=== PATIENT | female | born 1955 | race Caucasian/White ===

== ENCOUNTER → 2018-09-01 | Outpatient (CLI) | payer OTHER ==
[~2018-09-01] MED LIST: E-Z-GAS II EFFERVESCENT PACKET (SODIUM BICARB./CITRIC ACID/SIMETHICONE) As Ordered ONE; E-Z-HD 98% w/w 340GM SUSP BTL As Ordered ONE; E-Z-PAQUE 96% w/w SUSP 176GM BTL As Ordered ONE
--- NOTE | 2018-09-16 10:41 | REP ---
Examination Requested: Esophagram Barium Swallow Reason For Exam/Comment: Dysphasia Esophagram: The procedure was performed LISETTE Rios, under the direct supervision of Dr. Elliott. The images were reviewed with Dr. Elliott. A single PA chest x-ray is submitted as a event organizer film. The superior mediastinal structures are midline. The heart size is within normal limits. The lungs are clear. Liquid barium and gas producing granules were given in the erect position as well as liquid barium in the prone oblique position, in order to perform a double contrast esophagram examination. Oral and pharyngeal stages of the examination were unremarkable. Esophageal transport is efficient and there is no esophagitis, stricture, or mucosal ring noted. The patient is status post Kalen fundoplication. There is no hiatal hernia noted. Gastroesophageal reflux was not visualized throughout the course of the exam. Impression: 1. Unremarkable esophagram. 0.4 minutes of fluoroscopy time was utilized for this procedure. Some fluoroscopic images are performed with last image hold technology. These images require no additional radiation. Reviewed by LISETTE Steinberg 09/01/2018 03:35 P Electronically Signed by Sami Elliott MD 09/16/2018 10:32 A
== END ==
LOC: M RAD 09:19
PROVIDERS: ATTEND Internal Medicine Gastroenterology
DX: R13.10 Dysphagia, unspecified (principal); K21.9 Gastro-esophageal reflux disease without esophagitis; Z98.0 Intestinal bypass and anastomosis status

== ENCOUNTER → 2023-03-04 | Outpatient (REF) | payer MEDICARE, OTHER | LOC: M SFHCDERM 14:50 | PROVIDERS: ATTEND Dermatology | DX: D16.4 Benign neoplasm of bones of skull and face (principal); C43.39 Malignant melanoma of other parts of face; Z08 Encounter for follow-up examination after completed treatment for malignant neoplasm ==

== ENCOUNTER → 2024-03-10 | Outpatient (REF) | payer OTHER, MEDICARE | LOC: M LAB REF 14:55 | PROVIDERS: ATTEND Surgery | DX: C44.619 Basal cell carcinoma of skin of left upper limb, including shoulder (principal); D03.62 Melanoma in situ of left upper limb, including shoulder; L81.9 Disorder of pigmentation, unspecified ==